=== PATIENT | female | born 1985 | race Hispanic/Latino ===

== ENCOUNTER → 2022-12-07 | Outpatient (CLI) | payer BC ==
[~2022-12-07] MED LIST: GADOTERATE MEGLUMINE 10 MMOL/20 ML VIAL IV ONE
== END | disposition home or self-care (01) ==
LOC: RAH 08:00
PROVIDERS: ATTEND Nurse Practitioner Adult Health
DX: D49.7 Neoplasm of unspecified behavior of endocrine glands and other parts of nervous system (principal); D35.2 Benign neoplasm of pituitary gland
CPT/HCPCS: 70553; A9575